=== PATIENT | male | born 1940 | race Caucasian/White ===

== ENCOUNTER 2020-02-07 16:51 | Emergency (ER) | payer OTHER, MEDICARE ==
[2020-02-07 17:05] VITALS: BP 153/98; PULSE 72; TEMP 97.7; BMI 18.6
--- OUTSIDE RECORDS SUMMARY | 2020-02-07 17:16 | XMS ---
:1940 [facility] Providers Name Role Phone MOHIT CHINCHILLA Unavailable Unavailable Lawanda, Osama Unavailable Unavailable Lawanda, Osama Unavailable Unavailable Lawanda, Osama Unavailable Unavailable Lawanda, Osama Unavailable Unavailable Lawanda, Osama Unavailable Unavailable Lawanda, Osama Unavailable Unavailable Lawanda, Osama Unavailable Unavailable Lawanda, Osama Unavailable Unavailable Lawanda, Osama Unavailable Unavailable Lawanda, Osama Unavailable Unavailable Lawanda, Osama Unavailable Unavailable Lawanda, Osama Unavailable Unavailable Lawanda, Osama Unavailable Unavailable Lawanda, Osama Unavailable Unavailable Lawanda, Osama Unavailable Unavailable Re-disclosure Warning The records that you are about to access may contain information from federally- assisted alcohol or drug abuse programs. If such information is present, then the following federally mandated warning applies: This information has been disclosed to you from records protected by federal confidentiality rules (42 CFR part 2). The federal rules prohibit you from making any further disclosure of this information unless further disclosure is expressly permitted by the written consent of the person to whom it pertains or as otherwise permitted by 42 CFR part 2. A general authorization for the release of medical or other information is NOT sufficient for this purpose. The Federal rules restrict any use of the information to criminally investigate or prosecute any alcohol or drug abuse patient.The records that you are about to access may contain highly sensitive health information, the redisclosure of which is protected by Article 27-F of the [facility] Public Health law. If you continue you may haveaccess to information: Regarding HIV / AIDS; Provided by facilities licensed or operated by the [facility] Office of Mental Health; or Provided by the [facility] Office for People With Developmental Disabilities. If such information is present, then the following [facility] mandated warning applies: This information has been disclosed to you from confidential records which are protected by state law. State law prohibits you from making any further disclosure of this information without the specific written consent of the person to whom it pertains, or as otherwise permitted by law. Any unauthorized further disclosure in violation of state law may result in a fine or senior care sentence or both. A general authorization for the release of medical or other information is NOT sufficient authorization for further disclosure. Allergies and Adverse Reactions Type Description Substance Reaction Status Data Source(s ) drew inhibitors drew inhibitors drew inhibitors ReportDt: Active eCW1 ([facility] Reaction: [facility] drew inhibitors drew inhibitors drew inhibitors ReportDt: Active eCW1 ([facility] 016 Reaction: [facility]) drew inhibitors drew inhibitors drew inhibitors ReportDt: Active eCW1 ([facility] 016 Reaction: [facility]) drew inhibitors drew inhibitors drew inhibitors ReportDt: Active eCW1 ([facility] 016 Reaction: [facility]) Encounters Encounter Providers Location Date Indications Data Source(s ) Outpatient [address] 01/13/2020 eCW1 ([facility] 12:00:00 [facility] AM EDT Practice PC) Outpatient [address] [facility] [address] 10/02/2019 [facility] [address] 08/23/2019 [facility] [address] 08/23/2019 eCW1 ([facility] 12:00:00 [facility] al AM EDT Practice PC) [address] 06/07/2019 eCW1 [facility] 12:[facility]00 [facility] AM EST Practice PC) [address] 05/03/2019 eCW1 ([facility] 12:00:00 [facility] AM EST Practice PC) [address] 03/11/2019 eCW1 [facility] 12[facility]:00 [facility] AM EST [facility] PC) Inpatient Attender: Reggie H-HAL6 01/21/2019 [facility] mandujano SayninfahAdmitter: 03:23:00 Medical C enter Osane PM EDT - SayeghReferrer: 01/23/2019 Osama Lawanda 10:50:00 AM EDT Patient discharged. [address] 01/21/2019 eCW1 ([facility] 12:00:00 AM EDT [facility]) [address] 12/17/2018 eCW1 ([facility] 12:00:00 AM EDT [facility]) Outpatient Attender: MOHIT Odonnell 2018 [facility] pushpa SHAVER 01:34:00 PM EST Medical C enter ROBERTAdmitter: MOHIT RUEDAReferrer: MOHIT RUEDA Medications Medication Brand Start Product Dose Route Administrative Pharmacy [facility] Indications Reaction Description Data Name Date Form Instructions Instructions Source(s) pregabalin Pregab 2.0 active Pregabal in eCW1 100 MG Oral murray 2019 {tabl 100 MG (Nacho t Capsule 100 MG 12:00: ets} [facility] Pregabalin 00 AM Medical 100 MG EDT Practice ) pregabalin Pregab 1.0 suspend Pregaba myesha eCW1 100 MG Oral murray 2020 {caps ed 100 MG (Nacho t Capsule 100 MG 12:00: ule} [facility] Pregabalin 00 AM Medical 100 MG EDT Practice PC) pregabalin Pregab 10/01/ active 1 capsul e eCW1 100 MG Oral murray 2019 ([facility] Capsule 100 MG 12:00: [facility] Pregabalin 00 AM Medical 100 MG EDT Practice ) pregabalin Pregab 1.0 suspend Pregaba myesha eCW1 100 MG Oral murray 2019 {caps ed 100 MG (Nacho t Capsule 100 MG 12:00: ule} [facility] Pregabalin 00 AM Medical 100 MG EDT Practice PC) Aspirin 81 Aspiri 03/11/ active 1 tablet eCW1 MG Delayed n 81 2018 ([facility] Release 81 MG 12:00: Geoffrey Oral Tablet 00 AM Medical Aspirin 81 EST Practice 81 MG PC) Aspirin 81 Aspiri 03/11/ active 1 tablet eCW1 MG Delayed n 81 2018 ([facility] Release 81 MG 12:00: [facility] Oral Tablet 00 AM Medical Aspirin 81 EST Practice 81 MG PC) Aspirin 81 Aspiri .0 active Aspirin 81 eCW1 MG Delayed n 81 2018 {tabl 81 MG ([facility] Release 81 MG 12:00: et} Geoffrey Oral Tablet 00 AM Medical Aspirin 81 EST Practice 81 MG PC) Aspirin 81 Aspiri .0 active Aspirin 81 eCW1 MG Delayed n 81 2018 {tabl 81 MG ([facility] Release 81 MG 12:00: et} Geoffrey Oral Tablet 00 AM Medical Aspirin 81 EST Practice 81 MG PC) Aspirin 81 Aspiri 03/11/ active 1 tablet eCW1 MG Delayed n 81 2018 ([facility] Release 81 MG 12:00: [facility] Oral Tablet 00 AM Medical Aspirin 81 EST Practice 81 MG PC) Aspirin 81 Aspiri 03/11/ active 1 tablet eCW1 MG Delayed n 81 2018 ([facility] Release 81 MG 12:00: [facility] Oral Tablet 00 AM Medical Aspirin 81 EST Practice 81 MG PC) Aspirin 81 Aspiri 03/11/ active 1 tablet eCW1 MG Delayed n 81 2018 ([facility] Release 81 MG 12:00: [facility] Oral Tablet 00 AM Medical Aspirin 81 EST Practice 81 MG PC) Zithromax Zithro 01/21/ active 2 tablets eCW1 Z-Juan Carlos 250 max 2018 on the first (S aint MG Z-Juan Carlos 12:00: day, then 1 [place] [facility] 250 MG 00 AM tablet daily [facility] EDT for 4 days Practice PC) Zithromax Zithro 01/21/ active 2 tablets eCW1 Z-Juan Carlos 250 max 2019 on the first (S aint MG Z-Juan Carlos 12:00: day, then 1 [place] [facility] 250 MG 00 AM tablet daily Medi [facility] EDT for 4 days Practice PC) Zithromax Zithro 01/21/ active 2 tablets eCW1 Z-Juan Carlos 250 max 2019 on the first (S aint MG Z-Juan Carlos 12:00: day, then 1 [place] [facility] 250 MG 00 AM tablet daily [facility] EDT for 4 days Practice PC) Zithromax Zithro 01/21/ active 2 tablets eCW1 Z-Juan Carlos 250 max 2019 on the first (S aint MG Z-Juan Carlos 12:00: day, then 1 [place] [facility] 250 MG 00 AM tablet daily [facility] EDT for 4 days Practice PC) Zithromax Zithro 01/21/ suspend Zithroma x eCW1 Z-Juan Carlos 250 max 2019 ed Z-Juan Carlos 250 MG (S aint MG Z-Juan Carlos 12:00: Geoffrey 250 MG 00 AM Medical EDT Practice PC) Zithromax Zithro 01/21/ active 2 tablets eCW1 Z-Juan Carlos 250 max 2019 on the first (S aint MG Z-Juan Carlos 12:00: day, then 1 [place] [facility] 250 MG 00 AM tablet daily [facility] EDT for 4 days Practice PC) Zithromax Zithro 01/21/ suspend Zithroma x eCW1 Z-Juan Carlos 250 max 2019 ed Z-Juan Carlos 250 MG (S aint MG Z-Juan Carlos 12:00: Geoffrey 250 MG 00 AM Medical EDT Practice PC) pregabalin Lyrica 12/17/ active 1 capsul e eCW1 100 MG Oral 100 MG 2019 ([facility] Capsule 12:00: Geoffrey [Lyrica] 00 AM Medical Lyrica 100 EDT Practice MG PC) pregabalin Lyrica 1.0 suspend Lyrica 100 eCW1 100 MG Oral 100 MG 2019 {caps ed MG (Nacho t Capsule 12:00: ule} Geoffrey [Lyrica] 00 AM Medical Lyrica 100 EDT Practice MG PC) pregabalin Lyrica 12/17/ active 1 capsul e eCW1 100 MG Oral 100 MG 2018 ([facility] Capsule 12:00: Geoffrey [Lyrica] 00 AM Medical Lyrica 100 EDT Practice MG PC) pregabalin Lyrica 12/17/ active 1 capsul e eCW1 100 MG Oral 100 MG 2018 ([facility] Capsule 12:00: Geoffrey [Lyrica] 00 AM Medical Lyrica 100 EDT Practice MG PC) pregabalin Lyrica 12/17/ active 1 capsul e eCW1 100 MG Oral 100 MG 2019 ([facility] Capsule 12:00: Geoffrey [Lyrica] 00 AM Medical Lyrica 100 EDT Practice MG PC) pregabalin Lyrica active 1 capsul e eCW1 100 MG Oral 100 MG 2018 ([facility] Capsule 12:00: Geoffrey [Lyrica] 00 AM Medical Lyrica 100 EDT Practice MG PC) pregabalin Lyrica 1.0 suspend Lyrica 100 eCW1 100 MG Oral 100 MG 2019 {caps ed MG (Nacho t Capsule 12:00: ule} Geoffrey [Lyrica] 00 AM Medical Lyrica 100 EDT Practice MG PC) Insurance Providers Payer name Policy type Policy ID Covered Covered libertarian's Policy P junior / Coverage libertarian ID relationship to Soria Inf ormation type soria SELF PAY SP INSURANCE M [id number] 01 [id number] A AARP O [id number] 01 [id number] 1 M [id number] 01 [id number] A AARP O [id number] 01 [id number] M [id number] 01 [id number] A Problems, Conditions, and Diagnoses Code Display Name Description Problem Type Effective Data Sour ce(s) Dates F43.20 [id number] Adjustment Problem 11/20/2019 eCW1 ([facility] disorder, 12:00:00 AM [facility] unspecified type EDT Medical Practice PC) 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/23/2019 [facility] dependence, DEPENDENCE, 10:50:[address] cigarettes, CIGARETTES, EDT uncomplicated UNCOMPLICATED J44.9 Chronic CHRONIC Diagnosis 01/23/2019 [facility] obstructive OBSTRUCTIVE 10:50:[address] pulmonary disease, PULMONARY DISEASE, EDT unspecified UNSPECIFIED R20.2 Paresthesia of PARESTHESIA OF Diagnosis 01/23/2019 [facility] skin SKIN 10:50:00 AM Medical Mg r EDT Z86.73 Personal history PRSNL HX OF TIA Diagnosis 01/23/2019 [facility] of transient (TIA), AND CEREB 10:50:00 AM Medic al Center ischemic attack INFRC W/O RESID EDT (TIA), and DEFICITS cerebral infarction without residual deficits I10 Essential ESSENTIAL Diagnosis 01/21/2019 [facility] (primary) (PRIMARY) 03:23:00 PM Medical Cente r hypertension HYPERTENSION EDT Surgeries/Procedures Procedure Description Date Indications Data Source(s) PHYSICIAN TELEPHONE 10/02/2019 eCW1 (Sa int Geoffrey EVALUATION 11-20 MIN 12:00:00 AM EDT [facility] Practice PC) Results ID Date Data Source Liver 01/23/2019 05:20:00 AM EDT [facility] Profile.[id number] Name Value Range Interpretation Description Data Sup porting Code Source(s) Document(s ) Alkaline 38-126 <content [facility] phosphatase styleCode="Bold"> [facility] [Enzymatic Alkaline Medical activity/volume] Phosphatase (ALP) Cente r in Serum or Plasma </content>114 IU/L<content styleCode="Italic s"> (38-126 IU/L)</content> Alanine 7-50 Above high <content [facility] aminotransferase normal styleCode="Bold"> [facility] [facility] [Enzymatic Alanine Medical activity/volume] Aminotransferase Center in Serum or Plasma (ALT) </content>72 IU/L H<content styleCode="Italic s"> (7-50 IU/L)</content> Aspartate 17-59 Above high <content [facility] aminotransferase normal styleCode="Bold"> [place] [facility] [Enzymatic Aspartate Medical activity/volume] Aminotransferase Center in Serum or Plasma (AST) </content>93 IU/L H<content styleCode="Italic s"> (17-59 IU/L)</content> Bilirubin.total 0.2-1.3 <content [facility] [Mass/volume] in styleCode="Bold"> [place] [facility] Serum or Plasma Bilirubin Total Medical </content>0.6 Center MG/DL<content styleCode="Italic s"> (0.2-1.3 MG/DL)</content> Albumin 3.5-5.0 Below low <content [facility] [Mass/volume] in normal styleCode="Bold"> [place] [facility] Serum or Plasma Albumin Medical </content>3.1 Center G/DL L<content styleCode="Italic s"> (3.5-5.0 G/DL)</content> ID Date Data Source HematologyRou.[id number] 01/23/2019 05:20:00 AM EDT [facility] 0400 Name Value Range Interpretation Description Data Sup porting Code Source(s) Document(s ) Hematocrit 41.0-53. <content [facility] [Volume 0 styleCode="Susy Geoffrey Fraction] of ">Hematocrit Medical Blood by </content>41.8 Center Automated count %<content styleCode="Ital ics"> (41.0-53.0 %)</content> Erythrocytes 4.4-5.9 <content [facility] [#/volume] in styleCode="Bold [facility] Blood by ">Red Blood Medical Automated count Cell Count Center </content>4.52 MCUMM<content styleCode="Ital ics"> (4.4-5.9 MCUMM)</content > Hemoglobin 13.5-17. <content [facility] [Mass/volume] in 5 styleCode="Bold Geoffrey Blood ">Hemoglobin Medical </content>14.1 Center G/DL<content styleCode="Ital ics"> (13.5-17.5 G/DL)</content> Leukocytes 4.4-11.0 <content [facility] [#/volume] in styleCode="Bold [facility] Blood by ">White Blood Medical Automated count Cell Count Center </content>9.83 KCUMM<content styleCode="Ital ics"> (4.4-11.0 KCUMM)</content > Erythrocyte 11.5-14. Above high <content [facility] distribution 5 normal styleCode="[facility] width [Ratio] by ">Red Cell Medical Automated count Distribution Center Width </content>14.6 % H<content styleCode="Ital ics"> (11.5-14.5 %)</content> Erythrocyte mean 26.0-34. <content [facility] corpuscular 0 styleCode="Bold Geoffrey hemoglobin ">Mean Medical [Entitic mass] Corposcular Center by Automated Hemoglobin count </content>31.2 PG<content styleCode="Ital ics"> (26.0-34.0 PG)</content> Platelets 130-400 <content [facility] [#/volume] in styleCode="Bold [facility] Blood by ">Platelet Medical Automated count Count Center </content>323 KCUMM<content styleCode="Ital ics"> (130-400 KCUMM)</content > Erythrocyte mean 32.0-37. <content [facility] corpuscular 0 styleCode="Bold Geoffrey hemoglobin ">Mean Corpus. Medical concentration Hgb Center [Mass/volume] by Concentration Automated count (MCHC) </content>33.7 G/DL<content styleCode="Ital ics"> (32.0-37.0 G/DL)</content> Erythrocyte mean 80.0-100 <content [facility] corpuscular .0 styleCode="Bold Geoffrey volume [Entitic ">Mean Medical volume] by Corpuscular Center Automated count Volume </content>92.5 FL<content styleCode="Ital ics"> (80.0-100.0 FL)</content> Neutrophils 36-66 Above high <content [facility] [#/volume] in normal styleCode="Bold [facility] Blood by ">Neutrophil Medical Automated count </content>66.2 Center % H<content styleCode="Ital ics"> (36-66 %)</content> UNK 1.6-7.3 <content [facility] styleCode="Bold Geoffrey ">Neutrophil Medical Count Center </content>6.50 KCUMM<content styleCode="Ital ics"> (1.6-7.3 KCUMM)</content > Platelet mean 8.0-11.0 <content [facility] volume [Entitic styleCode="Bold Geoffrey volume] in Blood ">Mean Platelet Medical by Automated Volume Center count </content>10.2 FL<content styleCode="Ital ics"> (8.0-11.0 FL)</content> Lymphocytes 24.0-44. Below low normal <content [facility] [#/volume] in 0 styleCode="Bold [facility] Blood by ">Lymphocyte Medical Automated count </content>19.7 Center % L<content styleCode="Ital ics"> (24.0-44.0 %)</content> Monocytes 3.0-10.0 Above high <content [facility] [#/volume] in normal styleCode="Bold [facility] Blood by ">Monocyte Medical Automated count </content>11.5 Center % H<content styleCode="Ital ics"> (3.0-10.0 %)</content> Eosinophils 0-5.0 <content [facility] [#/volume] in styleCode="Bold Geoffrey Blood by ">Eosinophil Medical Automated count </content>1.6 Center %<content styleCode="Ital ics"> (0-5.0 %)</content> UNK 1.0-4.8 <content [facility] styleCode="Bold Geoffrey ">Lymphocyte Medical Count Center </content>1.94 KCUMM<content styleCode="Ital ics"> (1.0-4.8 KCUMM)</content > UNK 0.0-0.6 <content [facility] styleCode="Bold Geoffrey ">Eosinophil Medical Count Center </content>0.16 KCUMM<content styleCode="Ital ics"> (0.0-0.6 KCUMM)</content > UNK 0.2-0.9 Above high <content [facility] normal styleCode="Bold Geoffrey ">Monocyte Medical Count Center </content>1.13 KCUMM H<content styleCode="Ital ics"> (0.2-0.9 KCUMM)</content > UNK 0.0 <content [facility] styleCode="Bold Geoffrey ">Nucleated Red Medical Blood Cell Center Count </content>0.00 KCUMM<content styleCode="Ital ics"> (0.0 KCUMM)</content > UNK 0.0-0.3 <content [facility] styleCode="Bold Geoffrey ">Basophil Medical Count Center </content>0.05 KCUMM<content styleCode="Ital ics"> (0.0-0.3 KCUMM)</content > Basophils 0.0-1.0 <content [facility] [#/volume] in styleCode="Bold Geoffrey Blood by ">Basophil Medical Automated count </content>0.5 Center %<content styleCode="Ital ics"> (0.0-1.0 %)</content> UNK 0 <content [facility] styleCode="Bold Geoffrey ">Nucleated Red Medical Blood Cell Center </content>0.0 /100<content styleCode="Ital ics"> (0 /100)</content> UNK 0-0.1 <content [facility] styleCode="Bold Geoffrey ">Immature Medical Granulocyte Center Count </content>0.05 KCUMM<content styleCode="Ital ics"> (0-0.1 KCUMM)</content > UNK < 1 <content [facility] styleCode="Bold Geoffrey ">Immature Medical Granulocyte Center Ratio </content>0.5 %<content styleCode="Ital ics"> (< 1 %)</content> ID Date Data Source GFR(Creatinine).[id number] 01/23/2019 05:20:00 AM EDT [facility] 0-0400 Name Value Range Interpretation Code Description Data Iraida rce(s) Supporting Document(s ) UNK > 60 <content [facility] styleCode="Bold"> Medical Cent er EGFR </content>100 GFR<content styleCode="Italic s"> (> 60 GFR)</content> ID Date Data Source CHMROUTINECCDA.[id number] 01/23/2019 05:20:00 AM EDT [facility] -0400 Name Value Range Interpretation Description Data Sup porting Code Source(s) Document(s ) UNK 2.3-3.5 <content [facility] styleCode="Milena Geoffrey d">Globulin Medical </content>2.6 Center G/DL<content styleCode="China lics"> (2.3-3.5 G/DL)</content > Phosphate 2.5-4.5 <content [facility] [Mass/volume] styleCode="Milena Geoffrey in Serum or d">Phosphorus Medical Plasma </content>3.3 Center MG/DL<content styleCode="China lics"> (2.5-4.5 MG/DL)</conten t> Magnesium 1.6-2.3 <content [facility] [Mass/volume] styleCode="Milena Geoffrey in Serum or d">Magnesium Medical Plasma </content>2.3 Center MG/DL<content styleCode="China lics"> (1.6-2.3 MG/DL)</conten t> UNK >= 1.0 <content [facility] styleCode="Milena Hale d">AG Ratio Medical </content>1.2 Center <content styleCode="China lics"> (>= 1.0 )</content> Protein 6.3-8.2 Below low normal <content [facility] [Mass/volume] styleCode="Milena Hale in Serum or d">Total Medical Plasma Protein Center </content>5.7 G/DL L<content styleCode="China lics"> (6.3-8.2 G/DL)</content > ID Date Data Source [facility].[id number] 01/23/2019 05:20:00 AM EDT [facility] Center Name Value Range Interpretation Description Data Sup porting Code Source(s) Document(s ) Sodium 137-145 <content [facility] [Moles/volume] in styleCode="Bold"> Omar phs Serum or Plasma Sodium Medical </content>139 Center MEQ/L<content styleCode="Italic s"> (137-145 MEQ/L)</content> Potassium 3.5-5.3 <content [facility] [Moles/volume] in styleCode="Bold"> Omar phs Serum or Plasma Potassium Medical </content>4.5 Center MEQ/L<content styleCode="Italic s"> (3.5-5.3 MEQ/L)</content> Glucose 74-106 Above high <content [facility] [Mass/volume] in normal styleCode="Bold"> [place] [facility] Serum or Plasma Glucose Medical </content>107 Center MG/DL H<content styleCode="Italic s"> (74-106 MG/DL)</content> Calcium 8.4-10. <content [facility] [Mass/volume] in 2 styleCode="Bold"> [place] [facility] Serum or Plasma Calcium Medical </content>9.1 Center MG/DL<content styleCode="Italic s"> (8.4-10.2 MG/DL)</content> Carbon dioxide, 22-30 <content [facility] total styleCode="Bold"> Geoffrey [Moles/volume] in Carbon Dioxide Medical Serum or Plasma </content>25 Center MEQ/L<content styleCode="Italic s"> (22-30 MEQ/L)</content> Creatinine 0.5-1.3 <content [facility] [Mass/volume] in styleCode="Bold"> [place] [facility] Serum or Plasma Creatinine Medical </content>0.8 Center MG/DL<content styleCode="Italic s"> (0.5-1.3 MG/DL)</content> Chloride 98-107 <content [facility] [Moles/volume] in styleCode="Bold"> Omar phs Serum or Plasma Chloride Medical </content>106 Center MEQ/L<content styleCode="Italic s"> (98-107 MEQ/L)</content> UNK 9-20 <content [facility] styleCode="Bold"> Geoffrey BUN </content>19 Medical MG/DL<content Center styleCode="Italic s"> (9-20 MG/DL)</content> Alkaline 38-126 <content [facility] phosphatase styleCode="Bold"> Geoffrey [Enzymatic Alkaline Medical activity/volume] Phosphatase (ALP) Cente r in Serum or Plasma </content>114 IU/L<content styleCode="Italic s"> (38-126 IU/L)</content> Alanine 7-50 Above high <content [facility] aminotransferase normal styleCode="Bold"> [place] [facility] [Enzymatic Alanine Medical activity/volume] Aminotransferase Center in Serum or Plasma (ALT) </content>72 IU/L H<content styleCode="Italic s"> (7-50 IU/L)</content> Aspartate 17-59 Above high <content [facility] aminotransferase normal styleCode="Bold"> [place] [facility] [Enzymatic Aspartate Medical activity/volume] Aminotransferase Center in Serum or Plasma (AST) </content>93 IU/L H<content styleCode="Italic s"> (17-59 IU/L)</content> UNK > 60 <content [facility] styleCode="Bold"> Geoffrey EGFR Medical </content>100 Center GFR<content styleCode="Italic s"> (> 60 GFR)</content> Bilirubin.total 0.2-1.3 <content [facility] [Mass/volume] in styleCode="Bold"> [place] [facility] Serum or Plasma Bilirubin Total Medical </content>0.6 Center MG/DL<content styleCode="Italic s"> (0.2-1.3 MG/DL)</content> Albumin 3.5-5.0 Below low <content [facility] [Mass/volume] in normal styleCode="Bold"> [place] [facility] Serum or Plasma Albumin Medical </content>3.1 Center G/DL L<content styleCode="Italic s"> (3.5-5.0 G/DL)</content> ID Date Data Source Liver 01/22/2019 05:20:00 AM EDT [facility] Profile.[id number] Name Value Range Interpretation Description Data Sup porting Code Source(s) Document(s ) Alanine 7-50 Above high <content [facility] aminotransferase normal styleCode="Bold"> [place] [facility] [Enzymatic Alanine Medical activity/volume] Aminotransferase Center in Serum or Plasma (ALT) </content>62 IU/L H<content styleCode="Italic s"> (7-50 IU/L)</content> Alkaline 38-126 <content [facility] phosphatase styleCode="Bold"> [facility] [Enzymatic Alkaline Medical activity/volume] Phosphatase (ALP) Cente r in Serum or Plasma </content>96 IU/L<content styleCode="Italic s"> (38-126 IU/L)</content> Aspartate 17-59 Above high <content [facility] aminotransferase normal styleCode="Bold"> [place] [facility] [Enzymatic Aspartate Medical activity/volume] Aminotransferase Center in Serum or Plasma (AST) </content>107 IU/L H<content styleCode="Italic s"> (17-59 IU/L)</content> Bilirubin.total 0.2-1.3 <content [facility] [Mass/volume] in styleCode="Bold"> [place] [facility] Serum or Plasma Bilirubin Total Medical </content>0.6 Center MG/DL<content styleCode="Italic s"> (0.2-1.3 MG/DL)</content> Albumin 3.5-5.0 Below low <content [facility] [Mass/volume] in normal styleCode="Bold"> [place] hs Serum or Plasma Albumin Medical </content>3.1 Center G/DL L<content styleCode="Italic s"> (3.5-5.0 G/DL)</content> ID Date Data Source LIPID.[id number] 01/22/2019 05:20:00 AM EDT [facility] Name Value Range Interpretation Description Data Sup porting Code Source(s) Document(s ) Cholesterol -<200 <content [facility] [Mass/volume] in styleCode="Milena Geoffrey Serum or Plasma d">Cholesterol Medical </content>119 Center MG/DL<content styleCode="China lics"> (-<200 MG/DL)</conten t> Triglyceride < 150 <content [facility] [Mass/volume] in styleCode="Milena Geoffrey Serum or Plasma d">Triglycerid Medical Center </content>110 MG/DL<content styleCode="China lics"> (< 150 MG/DL)</conten t> UNK > 60 Below low normal <content Saint styleCode="Milena Geoffrey d">HDL- Medical Cholesterol Center </content>24 MG/DL L<content styleCode="China lics"> (> 60 MG/DL)</conten t> UNK < 100 <content Saint styleCode="Milena Geoffrey d">LDL-Cholest [facility] michaela Center </content>73 MG/DL<content styleCode="China lics"> (< 100 MG/DL)</conten t> ID Date Data Source Hormones.[id number] 01/22/2019 05:20:00 AM EDT [facility] Name Value Range Interpretation Description Data Sup porting Code Source(s) Document(s ) Thyrotropin 0.465-4. <content Saint [Units/volume] 68 styleCode="Milena Geoffrey in Serum or d">Thyroid Medical Plasma by Stimulating Center Detection Hormone limit <= 0.05 </content>2.10 mIU/L MIU/L<content styleCode="China lics"> (0.465-4.68 MIU/L)</conten t> ID Date Data Source HematologyRou.[id number] 01/22/2019 05:20:00 AM EDT [facility] 0400 Name Value Range Interpretation Description Data Sup porting Code Source(s) Document(s ) Hemoglobin 13.5-17. Below low normal <content Saint [Mass/volume] in 5 styleCode="Bold Geoffrey Blood ">Hemoglobin Medical </content>13.4 Center G/DL L<content styleCode="Ital ics"> (13.5-17.5 G/DL)</content> Leukocytes 4.4-11.0 <content Saint [#/volume] in styleCode="Bold Geoffrey Blood by ">White Blood Medical Automated count Cell Count Center </content>9.18 KCUMM<content styleCode="Ital ics"> (4.4-11.0 KCUMM)</content > Erythrocytes 4.4-5.9 Below low normal <content Saint [#/volume] in styleCode="Bold Geoffrey Blood by ">Red Blood Medical Automated count Cell Count Center </content>4.29 MCUMM L<content styleCode="Ital ics"> (4.4-5.9 MCUMM)</content > Erythrocyte mean 32.0-37. <content [facility] corpuscular 0 styleCode="Bold Geoffrey hemoglobin ">Mean Corpus. Medical concentration Hgb Center [Mass/volume] by Concentration Automated count (MCHC) </content>33.9 G/DL<content styleCode="Ital ics"> (32.0-37.0 G/DL)</content> Hematocrit 41.0-53. Below low normal <content Saint [Volume 0 styleCode="Bold Geoffrey Fraction] of ">Hematocrit Medical Blood by </content>39.5 Center Automated count % L<content styleCode="Ital ics"> (41.0-53.0 %)</content> Erythrocyte mean 80.0-100 <content [facility] corpuscular .0 styleCode="Bold Geoffrey volume [Entitic ">Mean Medical volume] by Corpuscular Center Automated count Volume </content>92.1 FL<content styleCode="Ital ics"> (80.0-100.0 FL)</content> Erythrocyte mean 26.0-34. <content [facility] corpuscular 0 styleCode="Bold Geoffrey hemoglobin ">Mean Medical [Entitic mass] Corposcular Center by Automated Hemoglobin count </content>31.2 PG<content styleCode="Ital ics"> (26.0-34.0 PG)</content> Neutrophils 36-66 <content Saint [#/volume] in styleCode="Bold Geoffrey Blood by ">Neutrophil Medical Automated count </content>57.0 Center %<content styleCode="Ital ics"> (36-66 %)</content> Platelet mean 8.0-11.0 <content Saint volume [Entitic styleCode="Bold Geoffrey volume] in Blood ">Mean Platelet Medical by Automated Volume Center count </content>9.9 FL<content styleCode="Ital ics"> (8.0-11.0 FL)</content> UNK 1.6-7.3 <content Saint styleCode="Bold Geoffrey ">Neutrophil Medical Count Center </content>5.23 KCUMM<content styleCode="Ital ics"> (1.6-7.3 KCUMM)</content > Platelets 130-400 <content Saint [#/volume] in styleCode="Bold Geoffrey Blood by ">Platelet Medical Automated count Count Center </content>271 KCUMM<content styleCode="Ital ics"> (130-400 KCUMM)</content > Erythrocyte 11.5-14. Above high <content [facility] distribution 5 normal styleCode="Bold Geoffrey width [Ratio] by ">Red Cell Medical Automated count Distribution Center Width </content>14.8 % H<content styleCode="Ital ics"> (11.5-14.5 %)</content> Lymphocytes 24.0-44. <content Saint [#/volume] in 0 styleCode="Bold Geoffrey Blood by ">Lymphocyte Medical Automated count </content>26.9 Center %<content styleCode="Ital ics"> (24.0-44.0 %)</content> Monocytes 3.0-10.0 Above high <content Saint [#/volume] in normal styleCode="Bold Geoffrey Blood by ">Monocyte Medical Automated count </content>13.2 Center % H<content styleCode="Ital ics"> (3.0-10.0 %)</content> UNK 1.0-4.8 <content Saint styleCode="Bold Geoffrey ">Lymphocyte Medical Count Center </content>2.47 KCUMM<content styleCode="Ital ics"> (1.0-4.8 KCUMM)</content > UNK 0.2-0.9 Above high <content Saint normal styleCode="Bold Geoffrey ">Monocyte Medical Count Center </content>1.21 KCUMM H<content styleCode="Ital ics"> (0.2-0.9 KCUMM)</content > Basophils 0.0-1.0 <content Saint [#/volume] in styleCode="Bold Geoffrey Blood by ">Basophil Medical Automated count </content>0.4 Center %<content styleCode="Ital ics"> (0.0-1.0 %)</content> UNK 0.0-0.6 <content Saint styleCode="Bold Geoffrey ">Eosinophil Medical Count Center </content>0.19 KCUMM<content styleCode="Ital ics"> (0.0-0.6 KCUMM)</content > UNK 0.0-0.3 <content Saint styleCode="Bold Geoffrey ">Basophil Medical Count Center </content>0.04 KCUMM<content styleCode="Ital ics"> (0.0-0.3 KCUMM)</content > Eosinophils 0-5.0 <content Saint [#/volume] in styleCode="Bold Geoffrey Blood by ">Eosinophil Medical Automated count </content>2.1 Center %<content styleCode="Ital ics"> (0-5.0 %)</content> UNK 0.0 <content Saint styleCode="Bold Geoffrey ">Nucleated Red Medical Blood Cell Center Count </content>0.00 KCUMM<content styleCode="Ital ics"> (0.0 KCUMM)</content > UNK 0 <content Saint styleCode="Bold Geoffrey ">Nucleated Red Medical Blood Cell Center </content>0.0 /100<content styleCode="Ital ics"> (0 /100)</content> UNK 0-0.1 <content styleCode="Bold Geoffrey ">Immature Medical Granulocyte Center Count </content>0.04 KCUMM<content styleCode="Ital ics"> (0-0.1 KCUMM)</content > UNK < 1 <content Saint styleCode="Bold Geoffrey ">Immature Medical Granulocyte Center Ratio </content>0.4 %<content styleCode="Ital ics"> (< 1 %)</content> ID Date Data Source GFR(Creatinine).[id number] 01/22/2019 05:20:00 AM EDT [facility] 0-0400 Name Value Range Interpretation Code Description Data Iraida rce(s) Supporting Document(s ) UNK > 60 <content [facility] styleCode="Bold"> Medical Cent er EGFR </content>87 GFR<content styleCode="Italic s"> (> 60 GFR)</content> ID Date Data Source Coagulation 01/22/2019 05:20:00 AM [facility] ical Center Rout.[id number] EDT Name Value Range Interpretation Description Data Sup porting Code Source(s) Document(s ) INR in 0.80-1.2 <content [facility] Platelet poor 0 styleCode="Bold" Geoffrey plasma by >INR Medical Coagulation </content>1.19 Center assay #<content styleCode="Itali cs"> (0.80-1.20 #)</content> aPTT in 25.1-36. <content [facility] Platelet poor 5 styleCode="Bold" Geoffrey plasma by >Partial Medical Coagulation Thromboplastin Center assay Time </content>28.7 SEC<content styleCode="Itali cs"> (25.1-36.5 SEC)</content> UNK 9.0-13.0 Above high normal <content Saint styleCode="Bold" Geoffrey >Protime Medical </content>13.2 Center SEC H<content styleCode="Itali cs"> (9.0-13.0 SEC)</content> ID Date Data Source RANDALLMROUTINEIVAN.[id number] 01/22/2019 05:20:00 AM EDT [facility] -0400 Name Value Range Interpretation Description Data Sup porting Code Source(s) Document(s ) UNK >= 1.0 <content Saint styleCode="Milena Zunigas d">AG Ratio Medical </content>1.2 Center <content styleCode="China lics"> (>= 1.0 )</content> UNK 2.3-3.5 <content Saint styleCode="Milena Geoffrey d">Globulin Medical </content>2.6 Center G/DL<content styleCode="China lics"> (2.3-3.5 G/DL)</content > UNK 4.2-5.8 Above high normal <content Saint styleCode="[facility] d">Hemoglobin Medical A1C Center </content>5.9 % H<content styleCode="China lics"> (4.2-5.8 %)</content> Protein 6.3-8.2 Below low normal <content [facility] [Mass/volume] styleCode="Milena Zunigas in Serum or d">Total Medical Plasma Protein Center </content>5.7 G/DL L<content styleCode="China lics"> (6.3-8.2 G/DL)</content > Magnesium 1.6-2.3 <content [facility] [Mass/volume] styleCode="Milena Geoffrey in Serum or d">Magnesium Medical Plasma </content>2.1 Center MG/DL<content styleCode="China lics"> (1.6-2.3 MG/DL)</conten t> Phosphate 2.5-4.5 <content [facility] [Mass/volume] styleCode="Milena Geoffrey in Serum or d">Phosphorus Medical Plasma </content>3.4 Center MG/DL<content styleCode="China lics"> (2.5-4.5 MG/DL)</conten t> ID Date Data Source [facility].[id number] 01/22/2019 05:20:00 AM EDT [facility] Name Value Range Interpretation Description Data Sup porting Code Source(s) Document(s ) Potassium 3.5-5.3 <content [facility] [Moles/volume] in styleCode="Bold"> [facility] Serum or Plasma Potassium Medical </content>4.2 Center MEQ/L<content styleCode="Italic s"> (3.5-5.3 MEQ/L)</content> Sodium 137-145 <content [facility] [Moles/volume] in styleCode="Bold"> [facility] Serum or Plasma Sodium Medical </content>138 Center MEQ/L<content styleCode="Italic s"> (137-145 MEQ/L)</content> Chloride 98-107 <content [facility] [Moles/volume] in styleCode="Bold"> [facility] Serum or Plasma Chloride Medical </content>104 Center MEQ/L<content styleCode="Italic s"> (98-107 MEQ/L)</content> Glucose 74-106 <content [facility] [Mass/volume] in styleCode="Bold"> [place] [facility] Serum or Plasma Glucose Medical </content>97 Center MG/DL<content styleCode="Italic s"> (74-106 MG/DL)</content> Carbon dioxide, 22-30 <content Saint total styleCode="Bold"> Geoffrey [Moles/volume] in Carbon Dioxide Medical Serum or Plasma </content>24 Center MEQ/L<content styleCode="Italic s"> (22-30 MEQ/L)</content> Creatinine 0.5-1.3 <content [facility] [Mass/volume] in styleCode="Bold"> [place] [facility] Serum or Plasma Creatinine Medical </content>0.9 Center MG/DL<content styleCode="Italic s"> (0.5-1.3 MG/DL)</content> UNK 9-20 <content Saint styleCode="Bold"> Geoffrey BUN </content>20 Medical MG/DL<content Center styleCode="Italic s"> (9-20 MG/DL)</content> Calcium 8.4-10. <content Saint [Mass/volume] in 2 styleCode="Bold"> [place] [facility] Serum or Plasma Calcium Medical </content>8.6 Center MG/DL<content styleCode="Italic s"> (8.4-10.2 MG/DL)</content> Aspartate 17-59 Above high <content [facility] aminotransferase normal styleCode="Bold"> [place] [facility] [Enzymatic Aspartate Medical activity/volume] Aminotransferase Center in Serum or Plasma (AST) </content>107 IU/L H<content styleCode="Italic s"> (17-59 IU/L)</content> Alkaline 38-126 <content [facility] phosphatase styleCode="Bold"> Geoffrey [Enzymatic Alkaline Medical activity/volume] Phosphatase (ALP) Cente r in Serum or Plasma </content>96 IU/L<content styleCode="Italic s"> (38-126 IU/L)</content> Alanine 7-50 Above high <content [facility] aminotransferase normal styleCode="Bold"> [place] [facility] [Enzymatic Alanine Medical activity/volume] Aminotransferase Center in Serum or Plasma (ALT) </content>62 IU/L H<content styleCode="Italic s"> (7-50 IU/L)</content> Bilirubin.total 0.2-1.3 <content [facility] [Mass/volume] in styleCode="Bold"> [place] [facility] Serum or Plasma Bilirubin Total Medical </content>0.6 Center MG/DL<content styleCode="Italic s"> (0.2-1.3 MG/DL)</content> UNK > 60 <content Saint styleCode="Bold"> Geoffrey EGFR </content>87 Medical GFR<content Center styleCode="Italic s"> (> 60 GFR)</content> Albumin 3.5-5.0 Below low <content Saint [Mass/volume] in normal styleCode="Bold"> [place] [facility] Serum or Plasma Albumin Medical </content>3.1 Center G/DL L<content styleCode="Italic s"> (3.5-5.0 G/DL)</content> ID Date Data Source LIPID.[id number] 01/21/2019 04:06:00 PM EDT [facility] Name Value Range Interpretation Description Data Sup porting Code Source(s) Document(s ) Cholesterol -<200 <content [facility] [Mass/volume] in styleCode="Milena Geoffrey Serum or Plasma d">Cholesterol Medical </content>138 Center MG/DL<content styleCode="China lics"> (-<200 MG/DL)</conten t> UNK > 60 Below low normal <content Saint styleCode="Milena Geoffrey d">HDL- Medical Cholesterol Center </content>30 MG/DL L<content styleCode="China lics"> (> 60 MG/DL)</conten t> Triglyceride < 150 <content Saint [Mass/volume] in styleCode="[facility] Serum or Plasma d">Triglycerid Medical es Center </content>125 MG/DL<content styleCode="China lics"> (< 150 MG/DL)</conten t> UNK < 100 <content Saint styleCode="[facility] d">LDL-Cholest Medical michaela Center </content>83 MG/DL<content styleCode="China lics"> (< 100 MG/DL)</conten t> ID Date Data Source HematologyRou.[id number] 01/21/2019 04:06:00 PM EDT [facility] 0400 Name Value Range Interpretation Description Data Sup porting Code Source(s) Document(s ) Leukocytes 4.4-11.0 <content Saint [#/volume] in styleCode="Bold Geoffrey Blood by ">White Blood Medical Automated count Cell Count Center </content>8.70 KCUMM<content styleCode="Ital ics"> (4.4-11.0 KCUMM)</content > Erythrocytes 4.4-5.9 <content Saint [#/volume] in styleCode="Bold Geoffrey Blood by ">Red Blood Medical Automated count Cell Count Center </content>4.73 MCUMM<content styleCode="Ital ics"> (4.4-5.9 MCUMM)</content > Hemoglobin 13.5-17. <content Saint [Mass/volume] in 5 styleCode="Bold Geoffrey Blood ">Hemoglobin Medical </content>15.0 Center G/DL<content styleCode="Ital ics"> (13.5-17.5 G/DL)</content> Hematocrit 41.0-53. <content [facility] [Volume 0 styleCode="Bold Geoffrey Fraction] of ">Hematocrit Medical Blood by </content>43.9 Center Automated count %<content styleCode="Ital ics"> (41.0-53.0 %)</content> Erythrocyte mean 26.0-34. <content [facility] corpuscular 0 styleCode="Bold Geoffrey hemoglobin ">Mean Medical [Entitic mass] Corposcular Center by Automated Hemoglobin count </content>31.7 PG<content styleCode="Ital ics"> (26.0-34.0 PG)</content> Erythrocyte mean 32.0-37. <content [facility] corpuscular 0 styleCode="Bold Geoffrey hemoglobin ">Mean Corpus. Medical concentration Hgb Center [Mass/volume] by Concentration Automated count (MCHC) </content>34.2 G/DL<content styleCode="Ital ics"> (32.0-37.0 G/DL)</content> Erythrocyte mean 80.0-100 <content [facility] corpuscular .0 styleCode="Bold Geoffrey volume [Entitic ">Mean Medical volume] by Corpuscular Center Automated count Volume </content>92.8 FL<content styleCode="Ital ics"> (80.0-100.0 FL)</content> Erythrocyte 11.5-14. Above high <content [facility] distribution 5 normal styleCode="Bold Geoffrey width [Ratio] by ">Red Cell Medical Automated count Distribution Center Width </content>14.9 % H<content styleCode="Ital ics"> (11.5-14.5 %)</content> Platelet mean 8.0-11.0 <content [facility] volume [Entitic styleCode="Bold Geoffrey volume] in Blood ">Mean Platelet Medical by Automated Volume Center count </content>10.1 FL<content styleCode="Ital ics"> (8.0-11.0 FL)</content> Platelets 130-400 <content [facility] [#/volume] in styleCode="Bold Geoffrey Blood by ">Platelet Medical Automated count Count Center </content>281 KCUMM<content styleCode="Ital ics"> (130-400 KCUMM)</content > UNK 0 <content Saint styleCode="Bold Geoffrey ">Nucleated Red Medical Blood Cell Center </content>0.0 /100<content styleCode="Ital ics"> (0 /100)</content> UNK 0.0 <content Saint styleCode="Bold Geoffrey ">Nucleated Red Medical Blood Cell Center Count </content>0.00 KCUMM<content styleCode="Ital ics"> (0.0 KCUMM)</content > ID Date Data Source GFR(Creatinine).[id number] 01/21/2019 04:06:00 PM EDT [facility] 0-0400 Name Value Range Interpretation Code Description Data Iraida rce(s) Supporting Document(s ) UNK > 60 <content [facility] styleCode="Bold"> Medical Cent er EGFR </content>77 GFR<content styleCode="Italic s"> (> 60 GFR)</content> ID Date Data Source Coagulation 01/21/2019 04:06:00 PM [facility] ical Center Rout.[id number] EDT Name Value Range Interpretation Description Data Sup porting Code Source(s) Document(s ) INR in 0.80-1.2 Above high normal <content [facility] Platelet poor 0 styleCode="Bold" Geoffrey plasma by >INR Medical Coagulation </content>1.23 # Center assay H<content styleCode="Itali cs"> (0.80-1.20 #)</content> UNK 9.0-13.0 Above high normal <content Saint styleCode="Bold" Geoffrey >Protime Medical </content>13.6 Center SEC H<content styleCode="Itali cs"> (9.0-13.0 SEC)</content> aPTT in 25.1-36. <content [facility] Platelet poor 5 styleCode="Bold" Geoffrey plasma by >Partial Medical Coagulation Thromboplastin Center assay Time </content>26.7 SEC<content styleCode="Itali cs"> (25.1-36.5 SEC)</content> ID Date Data Source [employer].[id number] 01/21/2019 04:06:00 PM EDT [facility] -0400 Name Value Range Interpretation Description Data Sup porting Code Source(s) Document(s ) Troponin < 0.034 <content Saint I.cardiac styleCode="Bold Geoffrey [Mass/volume ">Troponin I Medical ] in Serum </content>< Center or Plasma 0.012 NG/ML<content styleCode="Ital ics"> (< 0.034 NG/ML)</content > ID Date Data Source BloodBank.[id number] 01/21/2019 04:06:00 PM EDT [facility] Name Value Range Interpretation Code Description Data Supporting Source(s) Document(s ) UNK NEGATIVE <content [facility] styleCode="Bold">A Medical ntibody Screen Center </content>POSITIVE <content styleCode="Italics "> (NEGATIVE )</content> UNK <content [facility] styleCode="Bold">A Medical ntibody Center Identification </content>INC (Reference Range: not available)
UNK <content [facility] styleCode="Bold">R Medical H Type Center </content>POSITIVE (Reference Range: not available)
UNK <content [facility] styleCode="Bold">B Medical lood Type Center </content>GROUP A (Reference Range: not available)
UNK NEGATIVE <content [facility] styleCode="Bold">D Medical irect [facility] </content>NEGATIVE <content styleCode="Italics "> (NEGATIVE )</content> ID Date Data Source [facility].[id number] 01/21/2019 04:06:00 PM EDT [facility] Center Name Value Range Interpretation Description Data Sup porting Code Source(s) Document(s ) Potassium 3.5-5.3 <content Saint [Moles/volume] styleCode="Milena Geoffrey in Serum or d">Potassium Medical Plasma </content>4.4 Center MEQ/L<content styleCode="China lics"> (3.5-5.3 MEQ/L)</conten t> Chloride 98-107 <content [facility] [Moles/volume] styleCode="Milena Geoffrey in Serum or d">Chloride Medical Plasma </content>102 Center MEQ/L<content styleCode="China lics"> (98-107 MEQ/L)</conten t> Sodium 137-145 <content Saint [Moles/volume] styleCode="Milena Geoffrey in Serum or d">Sodium Medical Plasma </content>138 Center MEQ/L<content styleCode="China lics"> (137-145 MEQ/L)</conten t> Creatinine 0.5-1.3 <content [facility] [Mass/volume] styleCode="Milena Geoffrey in Serum or d">Creatinine Medical Plasma </content>1.0 Center MG/DL<content styleCode="China lics"> (0.5-1.3 MG/DL)</conten t> Carbon 22-30 <content [facility] dioxide, total styleCode="Milena Geoffrey [Moles/volume] d">Carbon Medical in Serum or Dioxide Center Plasma </content>27 MEQ/L<content styleCode="China lics"> (22-30 MEQ/L)</conten t> Glucose 74-106 <content [facility] [Mass/volume] styleCode="Milena Geoffrey in Serum or d">Glucose Medical Plasma </content>106 Center MG/DL<content styleCode="China lics"> (74-106 MG/DL)</conten t> UNK 9-20 Above high normal <content Saint styleCode="Milena Geoffrey d">BUN Medical </content>24 Center MG/DL H<content styleCode="China lics"> (9-20 MG/DL)</conten t> Calcium 8.4-10.2 <content Saint [Mass/volume] styleCode="Milena Geoffrey in Serum or d">Calcium Medical Plasma </content>8.8 Center MG/DL<content styleCode="China lics"> (8.4-10.2 MG/DL)</conten t> UNK > 60 <content Saint styleCode="Milena Geoffrey d">EGFR Medical </content>77 Center GFR<content styleCode="China lics"> (> 60 GFR)</content> Procedure Social History Code Duration Value Status Description Data Source(s ) Smoking 01/13/2020 Current Smoker completed Current Smoker eCW1 ( [facility] 12:00:00 AM EDT [facility]) Smoking 11/20/2019 Current Smoker completed Current Smoker eCW1 ( [facility] 12:00:00 AM EDT [facility]) Smoking 01/21/2019 Daily Smoker completed Daily Smoker [facility] 09:09:00 PM EDT Medical C enter Smoking 01/21/2019 Daily Smoker completed Daily Smoker [facility] 06:28:00 PM EDT Medical C enter Smoking 01/21/2019 Daily Smoker completed Daily Smoker [facility] 06:00:00 PM EDT Medical C enter Smoking 01/21/2019 Daily Smoker completed Daily Smoker [facility] 03:40:00 PM EDT Medical C enter Smoking 01/21/2019 Daily Smoker completed Daily Smoker [facility] 03:31:00 PM EDT Medical C enter Smoking 01/21/2019 Daily Smoker completed Daily Smoker [facility] 03:31:00 PM EDT Medical C enter Vital Signs ID Date Data Source UNK Name Value Range Interpretation Code Description Data Source(s) Diastolic blood 78 mm[Hg] 78 mm[Hg] eCW1 ([facility]) Systolic blood 132 mm[Hg] 132 mm[Hg] eCW1 ([facility] Oxygen saturation 96 % 96 % eCW1 (S aint in Arterial blood [facility] by Pulse oximetry [facility]) Body temperature 96.7 [degF] 96.7 [degF] [facility] Respiratory rate 16 /min 16 /min eCW1 ( int [facility]) Heart rate 64 /min 64 /min [facility] Body mass index 18.13 kg/m2 18.13 kg/m2 eCW1 (S aint (BMI) [Ratio] [facility]) Body weight 130.0 130.0 [lb_av] eCW1 ([facility] t [facility]_av] [facility]) Body height 71 [in_i] 71 [in_i] [facility] Diastolic blood 62 mm[Hg] 62 mm[Hg] eCW1 ([facility]) Systolic blood 108 mm[Hg] 108 mm[Hg] eCW1 ([facility]) Oxygen saturation 96 % 96 % eCW1 (S aint in Arterial blood [facility] by Pulse oximetry Practic e ) Body temperature 97.7 [degF] 97.7 [degF] [facility]CW[facility] ( [facility] Respiratory rate 17 /min 17 /min eCW1 ([facility] int [facility]) Heart rate 71 /min 71 /min [facility]CW[facility] Body mass index 18.69 kg/m2 18.69 kg/m2 eCW1 (S aint (BMI) [Ratio] [facility]) Body weight 134.0 134.0 [lb_av] eCW1 (Nacho t [lb_av] [facility]) Body height 71 [in_i] 71 [in_i] [facility]CW[facility] ([facility] Diastolic blood 80 mm[Hg] 80 mm[Hg] eCW1 ([facility]) Systolic blood 126 mm[Hg] 126 mm[Hg] eCW1 ([facility]) Deprecated Oxygen 95 % 95 % eCW1 (S aint saturation in [facility] Oximetry Body temperature 97.1 [degF] 97.1 [degF] eCW1 ( [facility] Respiratory rate 16 /min 16 /min eCW1 ([facility]) Heart rate 80 /min 80 /min [facility]CW[facility] ([facility] Body mass index 18.53 kg/m2 18.53 kg/m2 eCW1 (S aint (BMI) [Ratio] [facility]) Body weight 132.9 132.9 [lb_av] eCW1 (Nacho t Measured [lb_av] [facility]) Body height 71 [in_us] 71 [in_us] eCW1 ([facility]) Diastolic blood 70 mm[Hg] 70 mm[Hg] eCW1 ([facility] pressure [facility]) Systolic blood 110 mm[Hg] 110 mm[Hg] eCW1 ([facility] pressure [facility]) Deprecated Oxygen 93 % 93 % eCW1 (S aint saturation in [facility] ical Capillary blood by Practi ce PC) Oximetry Body temperature 97.5 [degF] 97.5 [degF] eCW1 ( [facility] [place] [facility] Respiratory rate 16 /min 16 /min eCW1 ([facility] Heart rate 60 /min 60 /min eCW1 [facility] Body mass index 18.13 kg/m2 18.13 kg/m2 eCW1 ([facility] (BMI) [Ratio] [facility]) Body weight 130.0 130.0 [lb_av] eCW1 (Nacho t Measured [lb_av] [facility]) Body height 71 [in_us] 71 [in_us] [facility] Diastolic blood 80 mm[Hg] 80 mm[Hg] eCW1 ([facility]gey nt pressure [facility]) Systolic blood 108 mm[Hg] 108 mm[Hg] eCW1 ([facility] pressure [facility]) Deprecated Oxygen 96 % 96 % eCW1 ([facility] aint saturation in [facility]) Oximetry Body temperature 97.7 [degF] 97.7 [degF] eCW1 ( [facility] Respiratory rate 16 /min 16 /min eCW1 ([facility]) Heart rate 67 /min 67 /min eCW1 ([facility] Body mass index 18.13 kg/m2 18.13 kg/m2 eCW1 ([facility] (BMI) [Ratio] [facility]) Body weight 130.0 130.0 [lb_av] eCW1 ([facility] Measured [facility]lb_av] [facility] Body height 71 [in_us] 71 [in_us] [facility]CW[facility] Body temperature 37.463631 37.796521 [facility] Respiratory rate 20 /min 20 /min [facility] Heart rate 92 /min 92 /min [facility] Diastolic blood 94 mm[Hg] 94 mm[Hg] [facility] Systolic blood 147 mm[Hg] 147 mm[Hg] [facility] Body temperature 37.299955 37.769849 [facility] Respiratory rate 20 /min 20 /min [facility] Heart rate 84 /min 84 /min [facility] Diastolic blood 78 mm[Hg] 78 mm[Hg] [facility] Systolic blood 122 mm[Hg] 122 mm[Hg] [facility] [place] Body temperature 37.288835 37.3306[address] [facility] Respiratory rate 20 /min 20 /min [facility] Heart rate 86 /min 86 /min [facility] Diastolic blood 75 mm[Hg] 75 mm[Hg] [facility] Systolic blood 115 mm[Hg] 115 mm[Hg] [facility] [place] Body temperature 36.720637 36.047641 [facility] Respiratory rate 20 /min 20 /min [facility] Heart rate 88 /min 88 /min [facility] Diastolic blood 80 mm[Hg] 80 mm[Hg] [facility] Systolic blood 115 mm[Hg] 115 mm[Hg] [facility] Body temperature 36.532121 36.190694 [facility] Respiratory rate 20 /min 20 /min [facility] Heart rate 88 /min 88 /min [facility] Diastolic blood 66 mm[Hg] 66 mm[Hg] [facility] Systolic blood 110 mm[Hg] 110 mm[Hg] [facility] Body weight 57.131582 kg 57.957205 kg [facility] Body height 167.198676 167.920272 cm [facility] Body mass index 20.28 kg/m2 20.28 kg/m2 [facility] (BMI) [Ratio] [facility] [address] Body temperature 37.770046 37.414907 [facility] Respiratory rate 20 /min 20 /min [facility] Heart rate 92 /min 92 /min [facility] Diastolic blood 68 mm[Hg] 68 mm[Hg] [facility] Systolic blood 118 mm[Hg] 118 mm[Hg] [facility] Oxygen saturation 93 % 93 % [facility] Arterial blood [facility] by Pulse oximetry Body temperature 37.930870 37.585482 [facility] Respiratory rate 17 /min 17 /min [facility] Heart rate 79 /min 79 /min [facility] Diastolic blood 88 mm[Hg] 88 mm[Hg] [facility] Systolic blood 119 mm[Hg] 119 mm[Hg] [facility] Oxygen saturation 98 % 98 % [facility] Arterial blood [facility] by Pulse oximetry Oxygen saturation 100 % 100 % [facility] Arterial blood [facility] by Pulse oximetry Oxygen saturation 98 % 98 % [facility] Arterial blood [facility] by Pulse oximetry Patient Treatment Plan of Care Planned Activity Planned Date Details Description Data Source (s) pregabalin 100 MG Oral 01/13/2020 12:00:00 eCW1 ([facility] pregabalin 100 MG Oral 10/02/2019 12:00:00 eCW1 ([facility]) Aspirin 81 MG Delayed 03/11/2019 12:00:00 eCW1 ([facility] Tablet [facility]) Aspirin 81 MG Delayed 03/11/2019 12:00:00 eCW1 ([facility] Tablet [facility]) pregabalin 100 MG Oral 12/17/2018 12:00:00 eCW1 ([facility]Lyrica[facility]) pregabalin 100 MG Oral 12/17/2018 12:00:00 eCW1 ([facility] [Lyrica[facility] ) pregabalin 100 MG Oral 12/17/2018 12:00:00 eCW1 ([facility] Caps[facility] [Susiea] AM [facility] )
[2020-02-07] MEDS ORDERED: LIDOCAINE HCL 2% (50ML VIAL) SQ ONE (17:21)
[2020-02-07] MEDS ORDERED: DIPHTH,PERTUSS(ACELL),TET 0.5 ML DISP.SYRIN IM ONE ×2 (17:21→17:24)
[2020-02-07] MEDS ORDERED: LIDOCAINE HCL 2% (20ML MULTI-DOSE VIAL) ONE (17:23)
--- NOTE | 2020-02-07 17:23 | PDOC ---
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 Patient then reached out and tried to grab the sheet metal with both hands sustaining lacerations to bilateral hands. Patient applied bandages to his hands but was concerned that he could not control the bleeding and decided to come to the emergency department for evaluation. No recent travel or sick contacts. PAST MEDICAL HISTORY: See HPI SURGICAL HISTORY: Denies ALLERGIES: No known drug allergies REVIEW OF SYSTEMS General/Constitutional: Denies fever or chills. Denies weakness, weight change. HEENT: Denies change in vision. Denies ear pain or discharge. Denies sore throat. Cardiovascular: Denies chest pain or shortness of breath. Respiratory: Denies cough, wheezing, or hemoptysis. Gastrointestinal: Denies nausea, vomiting, diarrhea or constipation. Denies rectal bleeding. Genitourinary: Denies dysuria, frequency, or change in urination. Musculoskeletal: Denies joint or muscle swelling or pain. Denies neck or back pain. Skin and breasts: See HPI Neurologic: Denies headache, vertigo, loss of consciousness, or loss of sensation. Psychiatric: Denies depression or anxiety. Endocrine: Denies increased thirst. Denies abnormal weight change. Hematologic/Lymphatic: Denies anemia, easy bleeding, or history of blood clots. Allergic/Immunologic: Denies hives or skin allergy. Denies latex allergy. PHYSICAL EXAM General Appearance: Well-appearing, appropriately dressed. No apparent distress, no intoxication. Musculoskeletal/Extremities: FROM of all extremities against resistance, normal capillary refill. No tenderness to extremities, pedal edema, swelling, erythema or deformity. Integumentary: Approximate 6 cm linear laceration present to the palmar aspect of the left hand starting at the medial proximal aspect of the palm and extending towards the thenar space. Hemostasis achieved prior to arrival. Approximates 4.5 cm stellate laceration present to the dorsum of the right hand over the second and third metacarpals. Oozing blood present at laceration. Additional subcentimeter superficial linear laceration present to the dorsum of the distal phalanx of the middle finger of the left hand. Neurologic: grey roll man II-XII intact. Fully oriented, alert. Appropriate mood/affect. Motor strength 5/5. No appreciable EOM palsy, facial droop or sensory deficit. Past History - Medical History Allergies/Adverse Reactions: Allergies Allergy/AdvReac Type Severity Reaction Status Date / Time No Known Allergies Allergy Verified 02/07/20 16:56 COPD: No - Psycho-Social/Smoking History Smoking History: Current every day smoker Have you smoked in the past 12 months: Yes Number of Cigarettes Smoked Daily: 40 Information on smoking cessation initiated: Yes - Substance Abuse Hx (Audit-C & DAST Scrn) How often the patient has a drink containing alcohol: Never Score: In Men: 4 or > Positive; In Women: 3 or > Positive: 0 Screen Result (Pos requires Nsg. Audit-10AR): Negative In the last yr the pt used illegal drug/Rx for NonMed reason: No Score: Yes response is considered Positive: 0 Screen Result (Positive result requires Nsg. DAST-10): Negative *Physical Exam - Vital Signs Last Vital Signs Temp Pulse Resp BP Pulse Ox 97.7 F 72 16 153/98 100 02/07/20 16:56 02/07/20 16:56 02/07/20 16:56 02/07/20 16:56 02/07/20 16:56 Procedures - Consent Consent obtained: Verbal, From Patient - Laceration/Wound Repair Right Dorsal Hand Wound Length: 2.6 to 5.0 cm Wound Explored: clean Wound's Depth, Shape: stellate Irrigated w/ Saline: Yes Betadine Prep: Yes Anesthesia: 2% Lidocaine Amount of Anesthetic (ccs): 6 Wound Debrided: moderate Wound Repaired With: Sutures Suture Size/Type: 4:0 Number of Sutures: 6 Layer Closure: Yes Deep Layer Suture Size/Type: 3:0, gut Number of Deep Layer Sutures: 3 Sterile Dressing Applied: Yes Splint Applied: No Progress: 02/07/20 18:42 Patient tolerated well Right Volar Hand Wound Length: 5.0 to 7.5 cm Wound Explored: clean, no foreign body present Wound's Depth, Shape: superficial, linear Irrigated w/ Saline: Yes Betadine Prep: Yes Anesthesia: 2% Lidocaine Amount of Anesthetic (ccs): 9 Wound Debrided: moderate Wound Repaired With: Sutures Suture Size/Type: 4:0 Number of Sutures: 8 Layer Closure: No Sterile Dressing Applied: Yes Splint Applied: No Progress: 02/07/20 18:43 Patient tolerated well Medical Decision Making - Medical Decision Making 02/07/20 18:38 A/P: 79-year-old male with lacerations to bilateral hands which occurred at approximately 330 this afternoon [employer] Laceration repair-see procedure note for details Discharge home I discussed the physical exam findings, ancillary test results and final diagnoses with the patient. I answered all of the patient's questions. The patient was satisfied with the care received and felt comfortable with the disc harge plan and treatment plan. The patient will call their primary care physician within 24 hours to arrange follow-up and will return to the Emergency Department with any new, persistent or worsening symptoms. Portions of this note have been documented using voice recognition software. As a result, errors may occur in the terrazzo helper process. Effort has been made to correct all grammatical and terrazzo helper error, but some may have been missed which may produce sporadic inaccurate terrazzo helper or nonsensical phrases. Discharge - Discharge Information Problems reviewed: Yes Clinical Impression/Diagnosis: Laceration of multiple sites of hand and fingers Qualifiers: Encounter type: initial encounter Laterality: left Qualified Code(s): S61.412A - Laceration without foreign body of left hand, initial encounter; S61.219A - Laceration without foreign body of unspecified finger without damage to nail, initial encounter Laceration of hand Qualifiers: Encounter type: initial encounter Foreign body presence: without foreign body Laterality: right Qualified Code(s): S61.411A - Laceration without foreign body of right hand, initial encounter Condition: Stable Disposition: HOME - Admission No - Follow up/Referral Referrals: Damon Morley [Primary Care Provider] - - Patient Discharge Instructions Additional Instructions: Keep wound clean and dry Avoid strenuous activity/exercise to create a hot or sweaty environment until sutures are removed Do not work on air conditioning until your sutures are removed. Reapply bacitracin ointment 2 times a day for the next 4 days. Return to emergency Department or private physician in 14-20 days for suture removal May use Tylenol or Motrin for pain relief Return immediately to emergency department for redness, swelling, pain, or signs of infection - Post Discharge Activity Work/Back to School Note: Back to Work
== END 2020-02-07 18:43 | disposition home or self-care (01) ==
LOC: JERFT 16:51
PROC: 0HQFXZZ Repair Right Hand Skin, External Approach (ICD-10-PCS; principal; 2020-02-07)
PROC: 3E0234Z Introduction of Serum, Toxoid and Vaccine into Muscle, Percutaneous Approach (ICD-10-PCS; 2020-02-07)
DX: S61.412A Laceration without foreign body of left hand, initial encounter (principal); S61.219A Laceration without foreign body of unspecified finger without damage to nail, initial encounter; S61.411A Laceration without foreign body of right hand, initial encounter
CPT/HCPCS: 90715; 99284-25